=== PATIENT | male | born 1965 | race Caucasian/White ===

== ENCOUNTER 2021-10-26 14:37 | Emergency (ER) | payer BC, SELFPAY ==
[2021-10-26] MEDS ORDERED: Ketamine 50 MG/ML (10ML VIAL) ONE (15:59)
== END 2021-10-26 17:01 | disposition home or self-care (01) ==
LOC: ERS 14:37
DX: S43.004A Unspecified dislocation of right shoulder joint, initial encounter (principal); W19.XXXA Unspecified fall, initial encounter
CPT/HCPCS: 23650; 94760; 99152